=== PATIENT | male | born 1990 | race Caucasian/White ===

== ENCOUNTER 2024-05-01 20:10 | Emergency (ER) | payer OTHER ==
[2024-05-01 20:35] VITALS: RESP 16; TEMP 98.7; BMI 18.1
[2024-05-01] MEDS: LACTATED RINGERS SOLUTION 1000 ML INFUS.BAG IV ONE (21:05)
[2024-05-01 21:14] LABS: BASO % 0.5 % (0-2.0); EOS % 2.9 % (0-4.5); HEMATOCRIT 39.3 % (35.4-49); HEMOGLOBIN 13.4 GM/dL (11.7-16.9); LYMPH % 20.4 % (8-40); MCH 30.6 pg (25.7-33.7); MCHC 34.1 g/dl (32.0-35.9); MEAN CELL VOLUME 89.6 fl (80-96); MEAN PLT VOLUME 8.5 fl (7.5-11.1); MONO % 10.1 % (3.8-10.2); NEUT % 66.1 % (42.8-82.8); PLATELET COUNT 217 10^3/uL (134-434); RBC 4.39 M/mm3 (4.00-5.60); RDW 12.9 % (11.9-15.9); WHITE BLOOD COUNT 8.4 K/mm3 (4.0-10.0)
[2024-05-01 21:20] LABS: INR 1.01 (0.83-1.09); PROTHROMBIN TIME (PATIENT) 11.6 SEC (9.7-13.0)
[2024-05-01 21:23] LABS: ACTIVATED PTT 30.6 SECONDS (25.2-36.5)
[2024-05-01 21:36] LABS: POTASSIUM 3.8 mmol/L (3.5-5.1)
[2024-05-01 21:38] LABS: CALCIUM 9.1 mg/dL (8.5-10.1)
[2024-05-01 21:39] LABS: ALBUMIN 3.9 g/dl (3.4-5.0); BLOOD UREA NITROGEN 12.7 mg/dL (7-18)
[2024-05-01 21:42] LABS: CREATININE 0.8 mg/dL (0.55-1.3)
[2024-05-01 21:43] LABS: BILIRUBIN,TOTAL 0.4 mg/dL (0.2-1); TOT PROT 6.8 g/dl (6.4-8.2)
[2024-05-01 21:59] VITALS: PULSE 47
[2024-05-01] MEDS: SODIUM CHLORIDE 0.9% 500 ML INFUS.BAG IV ONE (22:09)
[2024-05-01 22:21] LABS: MAGNESIUM 2.1 mg/dL (1.8-2.4)
[2024-05-01 22:29] LABS: N-TERMINAL BNP 50.4 pg/ml (5-125)
[2024-05-01 22:58] VITALS: BP 101/59
== END 2024-05-01 23:06 | disposition home or self-care (01) ==
LOC: JER 20:10
DX: R00.1 Bradycardia, unspecified (principal); R42 Dizziness and giddiness; R61 Generalized hyperhidrosis; R19.7 Diarrhea, unspecified
CPT/HCPCS: 36415; 71045-TC-FY; 80053; 83735; 83880; 84100; 84443; 84484; 85025; 85610; 85730; 86850; 86900; 86901; 93005; 93010; 99285-25